=== PATIENT | male | born 1980 | race Caucasian/White ===

== ENCOUNTER 2017-06-21 09:01 | Day surgery (SDC) | payer BC ==
--- NOTE | 2017-06-17 21:38 | HP ---
PREOPERATIVE HISTORY AND PHYSICAL: DATE OF ADMISSION/SURGERY: 06/21/17 DATE OF OFFICE VISIT/ENCOUNTER: 06/17/17 ATTENDING SURGEON: Wendy Cesar MD * (DICTATED BY BELEN OCASIO) PROCEDURE: Left wrist carpal tunnel release. CHIEF COMPLAINT: Bilateral hand numbness and tingling, left worse than right. HISTORY OF PRESENT ILLNESS: This is a 37-year-old male, who complains of numbness and tingling in his bilateral hands worse on the left than on the right. Symptoms have been present for years. It has recently gotten bad enough that it is making it difficult for him to do his work and he would like to have treatment. He had a nerve conduction study three years ago, which showed moderate carpal tunnel syndrome on the left and mild on the right. Symptoms have worsened overtime. The patient is employed in [employer] and builds [employer] and symptoms are making it very difficult for him to perform his job duties; therefore, he is interested in pursuing surgical intervention at this time in the form of a left wrist carpal tunnel release. PAST MEDICAL HISTORY: Chronic back pain. PAST SURGICAL HISTORY: 1. Hernia repair x3. 2. Radioablation for back. CURRENT MEDICATIONS: 1. Ibuprofen p.r.n. 2. Vicodin p.r.n. back pain. ALLERGIES: DOXYCYCLINE causes nausea and vomiting. FAMILY MEDICAL HISTORY: Diabetes and stroke. SOCIAL HISTORY: The patient is employed in [employer], [employer]. He denies tobacco use and recreational drug use. He does drink alcohol on occasion. REVIEW OF SYSTEMS: General: Negative for fevers, chills, or night sweats. No known anesthesia problems. HEENT: Negative for headache, lightheadedness, or syncopal episodes. Integumentary: Negative for abrasions, lesions, or open wounds. Cardiothoracic: Negative for hypertension, chest pain, palpitations, or edema. Pulmonary: Negative for shortness of breath with exertion, chronic cough, COPD. GI: Negative for nausea, vomiting, diarrhea, constipation, or GERD. : Negative for nocturia, urinary frequency, urgency, history of UTIs or kidney problems. Musculoskeletal: Positive for current complaint. Positive for chronic back pain. Neurological: Negative for history of seizure , stroke, or epilepsy. Endocrine: Negative for diabetes or thyroid issues. Hematologic: Negative for easy bruising, anemia, excessive bleeding, or history of DVT. Infectious Disease: Negative for a history of MRSA, hepatitis C or HIV. PHYSICAL EXAMINATION GENERAL: Well-developed, well-nourished, 37-year-old male, in no acute distress. VITAL SIGNS: Height 5 feet 8-3/4 inches, weight 225 pounds. Pulse rate 72, blood pressure 120/86. HEENT: Normocephalic, atraumatic. Pupils are equal, round, and reactive to light and accommodation. Extraocular movements are intact. Throat is clear. NECK: Supple. No palpable lymph nodes. PULMONARY: Lungs are clear to auscultation bilaterally. No wheezes, rales, or rhonchi. CARDIOVASCULAR: Regular rate and rhythm. S1, S2. No murmurs, rubs, or gallops. No edema. ABDOMEN: Positive bowel sounds, soft, nontender. MUSCULOSKELETAL: On exam of his left upper extremity, he has no thenar wasting , but weakness with thumb abduction. He has a positive Tinel sign and Phalen's test bilaterally. Good range of motion of the fingers and the wrist. He has decreased sensation to light touch in the median nerve distribution worse on the left than on the right. NEUROLOGIC: Alert and oriented x3. Cranial nerves II through XII are intact. Sensation is intact to light touch. IMPRESSION: Bilateral carpal tunnel syndrome, left worse than right. PLAN: The patient is scheduled to undergo a left wrist carpal tunnel release with Dr. Cesar on 06/21/17. He will return to the office in 10 to 14 days postop for followup and suture removal. The patient has Vicodin at home as was prescribed for his back pain and he will plan on using that for postoperative pain management. We will refill if necessary. BELEN OCASIO [id number]/[facility] #: [id number] [place]
[~2017-06-21 09:01] MED LIST: Buffered Lidocaine 0.9% SYRIN* 5 ML/SYR SYRINGE INTRADERM ONE; Lidocaine 1% INJ* 10 MG/ML 30 ML SDV ONE
[2017-06-21] MEDS ORDERED: fentaNYL* 50 MCG/ML 2 ML VIAL (100 MCG VIAL) ONE (10:54)
[2017-06-21] MEDS ORDERED: Midazolam* 1 MG/ML 2 ML VIAL (2 MG) ONE (10:54)
[2017-06-21] MEDS ORDERED: Propofol* 10 MG/ML 20 ML BTL IV PUSH ONE (11:04)
[2017-06-21 12:08] VITALS: BP 132/84
--- NOTE | 2017-06-21 22:23 | OP ---
DATE OF OPERATION: 06/21/17 [facility] DATE OF : 78 SURGEON: Wendy Cesar MD SENIOR AUTOMATION ENGINEER: BELEN Tejeda ANESTHESIOLOGIST: Matthew Presley DO ANESTHESIA: Local MAC. PRE-OP DIAGNOSIS: Left carpal tunnel syndrome. POST-OP DIAGNOSIS: Left carpal tunnel syndrome. OPERATIVE PROCEDURE: Left carpal tunnel release. ESTIMATED BLOOD LOSS: Zero. TOURNIQUET TIME: 5 minutes. INDICATIONS FOR PROCEDURE: Carlos is a 37-year-old man with numbness and tingling in the median nerve distribution of his left hand and he presents for left carpal tunnel release. DESCRIPTION OF PROCEDURE: The patient was brought to the operating room, was given a sedation anesthetic and a local infiltration of 10 cc of 1% plain lidocaine in the palm of his left hand. The skin of his left hand and forearm was prepped and draped in the usual sterile fashion. The hand and forearm were exsanguinated and the tourniquet elevated to 250 mmHg. A longitudinal incision was made in the palm in line with the ring finger. We dissected through the subcutaneous tissue down to the transverse carpal ligament. The ligament was divided sharply with a knife and then more proximally with the scissors. The nerve was dissected free from the surrounding tissue and there was an area of moderate compression at the mid portion of the ligament. The wound was irrigated and skin edges reapproximated with 4-0 nylon suture. The wound was dressed with Xeroform, 4x4, Webril, and an Bayron wrap. The patient tolerated the procedure well and was brought to the recovery room in good condition. [id number]/[facility] #: [id number] [facility]
== END 2017-06-21 11:57 | disposition home or self-care (01) ==
LOC: OREAST 09:01
PROVIDERS: ATTEND Orthopaedic Surgery
DX: G56.02 Carpal tunnel syndrome, left upper limb (principal)
CPT/HCPCS: J2001; J2250; J2704; J3010